=== PATIENT | female | born 1930 | race Caucasian/White ===

== ENCOUNTER → 2018-12-26 | Outpatient (CLI) | payer OTHER ==
[~2018-12-26] MED LIST: AMLODIPINE BESY10 MG PO; ASPIR 8181 MG PO; FUROSEMIDE PO; LISINOPRIL40 MG PO; SYNTHROID50 MCG PO; TRAZODONE HCL50 MG PO; TYLENOL EXTRA500 MG PO; VITAMIN D2000 UNIT PO; ZOCOR20 MG PO
== END | disposition home or self-care (01) ==
LOC: M.PC 09:00
DX: M70.61 Trochanteric bursitis, right hip (principal); M50.10 Cervical disc disorder with radiculopathy, unspecified cervical region; M47.22 Other spondylosis with radiculopathy, cervical region; Z98.890 Other specified postprocedural states; Z96.641 Presence of right artificial hip joint; Z88.8 Allergy status to other drugs, medicaments and biological substances; Z79.82 Long term (current) use of aspirin; Z79.899 Other long term (current) drug therapy

== ENCOUNTER → 2018-12-27 | Outpatient (CLI) | payer OTHER | LOC: M.CT 08:38 | DX: M47.22 Other spondylosis with radiculopathy, cervical region (principal); M48.02 Spinal stenosis, cervical region; M25.512 Pain in left shoulder; Z91.81 History of falling ==

== ENCOUNTER → 2019-01-03 | Outpatient (CLI) | payer OTHER | LOC: M.RAD 08:47 | DX: M25.512 Pain in left shoulder (principal) ==

== ENCOUNTER → 2019-01-09 | Outpatient (CLI) | payer OTHER | END | disposition home or self-care (01) | LOC: M.PC 02:17 | DX: M19.012 Primary osteoarthritis, left shoulder (principal); M75.42 Impingement syndrome of left shoulder; M47.22 Other spondylosis with radiculopathy, cervical region; M50.10 Cervical disc disorder with radiculopathy, unspecified cervical region; M70.61 Trochanteric bursitis, right hip; Z91.040 Latex allergy status; Z88.8 Allergy status to other drugs, medicaments and biological substances; Z98.890 Other specified postprocedural states; Z79.82 Long term (current) use of aspirin ==

== ENCOUNTER → 2019-01-25 | Outpatient (CLI) | payer OTHER | LOC: M.PC 05:23 | DX: M50.122 Cervical disc disorder at C5-C6 level with radiculopathy (principal); M47.22 Other spondylosis with radiculopathy, cervical region; M25.551 Pain in right hip; M79.604 Pain in right leg; Z88.8 Allergy status to other drugs, medicaments and biological substances; Z91.040 Latex allergy status ==

== ENCOUNTER → 2019-01-27 | Outpatient (CLI) | payer OTHER | LOC: M.RAD 09:38 | DX: M47.814 Spondylosis without myelopathy or radiculopathy, thoracic region (principal); M47.815 Spondylosis without myelopathy or radiculopathy, thoracolumbar region; M48.54XA Collapsed vertebra, not elsewhere classified, thoracic region, initial encounter for fracture; M43.16 Spondylolisthesis, lumbar region; M40.46 Postural lordosis, lumbar region; M48.07 Spinal stenosis, lumbosacral region; Z96.641 Presence of right artificial hip joint ==

== ENCOUNTER → 2019-02-08 | Outpatient (CLI) | payer OTHER | LOC: M.PC 02-06 09:00 | DX: M47.22 Other spondylosis with radiculopathy, cervical region (principal); M50.122 Cervical disc disorder at C5-C6 level with radiculopathy; M75.42 Impingement syndrome of left shoulder; M70.61 Trochanteric bursitis, right hip; M79.605 Pain in left leg; Y93.89 Activity, other specified ==

== ENCOUNTER 2019-02-21 01:06 | Inpatient (IN) | payer OTHER ==
[~2019-02-21] VITALS: Ht 152.4 cm; Wt 56.0 kg
--- NOTE | ~2019-02-21 | CON ---
[address] [address] CONSULTATION Name: MYRANDAALEXIS Joselyn Room: [address] IN M.R.#: [id number] Admission: 02/21/19 Attend Phys: Ilir Falk MD Discharge: Date of : 31 Report #: [id number] THIS REPORT FOR: //name// CC: Ilir Mccartneysen Pati DATE OF SERVICE: 02/22/2019 HISTORY OF PRESENT ILLNESS: This is an 88-year-old female patient who was evaluated by me for somewhat of an unusual history. She said a few months ago, she fell on an outstretched left arm. She started having some pain in the neck area. She already has a stimulator there. She had a CT scan of the cervical spine and is being followed by her pain management. I was asked to see for the possibility of trigeminal neuralgia. She does describe some tingling and numbness on the left side of the face, but does not know any aggravating or relieving factors for that. REVIEW OF SYSTEMS: She said she is allergic to ____ cannot take gabapentin. She cannot have an MRI because of ____. She has been admitted with flank pain and sepsis. She apparently had some hypertension here. She also THINKS SHE IS ALLERGIC TO TRAMADOL. Pain is chronic and she goes to pain management for that. She does give a history of dyslipidemia. She had a laminectomy in the past. She has a history of hypertension and insomnia. She is complaining of neck pain. She denies any eye, ENT, respiratory, GI, , dermatological, hematological, psychiatric, allergic symptom associated with present symptomatology. PAST MEDICAL HISTORY: Positive for neck pain. FAMILY HISTORY: Negative for any early age stroke. SOCIAL HISTORY: She does not smoke. PHYSICAL EXAMINATION: Indicates she is alert, responsive, able to follow simple commands. Her speech, concentration, fund of knowledge and memory are at her baseline. Cranial nerve examinations appear unremarkable. She has a symmetrical strength, sensation, reflexes and tone in all 4 extremities. I could not look at the fundus. There is no meningeal sign. She has no thyroid mass. She is moderately built individual. She does not have any dysmorphic features of eyes, ears and face. Cardiac examination, apparently by record, she has been diagnosed to be new onset atrial fibrillation. Respiratory examination is unremarkable. No rhonchi was noted. Blood pressure is 157/71, pulse is 110, and temperature is 98.1. LABORATORY DATA: Indicate a white count of 11.3, it [place] [address] CONSULTATION Name: ALEXIS WHITOMRE Room: [address] IN ..#: [id number] Admission: 02/21/19 Attend Phys: Ilir Falk MD Discharge: Date of : 31 Report #: [id number] normal. She thought she had a CT scan of the head, but she did not. IMPRESSION: This patient's history is not typical for trigeminal neuralgia. She has a lot of neck pain and pain syndrome and has some reflected pain in the left ear area and some in the face, but the face pain is more of numbness. RECOMMENDATIONS: Since she cannot have an MRI, I will suggest getting a CT scan done. I am not inclined to do a CT angio because GFR is only 39. If CT shows some abnormality, we may consider that. I discussed with the patient that her treatment is going to be mainly by pain management. Thank you very much for this referral and if you have any question, please feel free to contact me. By: [id number] Fernandez MD /nt
[2019-02-21 04:46] VITALS: BP 90/43
[2019-02-21 05:21] VITALS: BP 86/33
[2019-02-21 05:25] LABS: HEMATOCRIT 43.1 % (37.0-47.0); HEMOGLOBIN 14.4 gm/dL (12.0-15.0); RBC 4.46 mil/uL (4.20-5.00); WBC 3.9 thou/uL (4.0-11.0)
[2019-02-21 05:26] LABS: ABSOLUTE EOSINOPHILS 0.1 thou/uL (0.0-0.7); ABSOLUTE LYMPHOCYTES 0.6 thou/uL (0.8-5.3); ABSOLUTE NEUTROPHILS 3.2 thou/uL (1.6-8.1); BASOPHILS 0.1 %; EOSINOPHILS 2.3 %; LYMPHOCYTES 15.4 %; MCH 32.4 pg (26.0-34.0); MCHC 33.5 g/dL (28.0-37.0); MCV 96.5 fL (80.0-100.0); MONOCYTES 0.8 %; MPV 7.6 fl. (7.2-11.1); PLATELET COUNT* 242 thou/uL (150-400); POLYS 81.4 %; RDW-CV 12.9 % (10.5-14.5)
[2019-02-21 05:27] LABS: ALBUMIN 3.6 g/dL (3.4-5.0); CREATININE 1.5 mg/dL (0.6-1.3); POTASSIUM 4.3 mmol/L (3.5-5.1); TOTAL BILIRUBIN 0.7 mg/dL (<0.1-1.0); TOTAL PROTEIN 6.5 g/dL (6.4-8.2)
[2019-02-21 05:28] LABS: URINE CLARITY CLEAR; URINE COLOR YELLOW; URINE GLUCOSE-RANDOM NEGATIVE (Negative); URINE KETONES NEGATIVE (Negative); URINE PROTEIN 1+ (Negative)
[2019-02-21 05:29] LABS: BACTERIA >30 Many /HPF (None Seen); CASTS None Seen /LPF (None Seen); CRYSTALS None Seen /LPF (None Seen); MUCUS None Seen strn/LPF (None Seen); SQUAMOUS NONE SEEN /LPF (0-3); URINE BILIRUBIN NEGATIVE (Negative); URINE BLOOD 2+ (Negative); URINE LEUKOCYTES 1+ (Negative); URINE NITRITE NEGATIVE (Negative); URINE UROBILINOGEN 0.2 E.U./dl (0.2-1.0); URINE WBC 6-15 Few /HPF (0-5)
--- NOTE | 2019-02-21 07:00 | NUR ---
RECIEVED REPORT FROM ED. PT ONSET OF SYMPTOMS X3 DAYS, BACK PAIN AND REPORTED PAIN OVER STIMULATOR THAT PT HAS IN PLACE FOR CHRONIC UNRELATED BACK PAIN. PT IS LETHARGIC,EASILY AROUSED AND ANSWERS APPROPRIATELY. TELEMETRY APPLIED AND SHOWING SR W 1ST AVB. BP LOW PT REMAINS ASYMPTOMATIC. IV FLUIDS RUNNING AT 250. SEE ADMISSION ASSESSMENT AND HX.
[2019-02-21 08:00] VITALS: BP 117/46
[2019-02-21 12:16] VITALS: BP 119/43
--- NOTE | 2019-02-21 12:21 | NUR ---
Pt is A&O. Resides at home with her s/o of 19 years. Active and independent. No DME. No hx of HH. Hx of skilled at [facility], [place], operated by [facility]. Goal is home at wa, no needs anticipated.
[2019-02-21 16:44] VITALS: BP 111/46
--- NOTE | 2019-02-21 18:57 | NUR ---
ASSUMED PT CARE AT 0700, PT A&O X4, HYPOTENSIVE, 2LPM VIA NC, WORD PROCESSING OPERATOR TRACING SINUS RHYTHM WITH 1ST DEGREE AV BLOCK, FULL ASSESSMENT CHARTED. PT HAS PREVIOUS BP'S DOCUMENTED SEVERLY HYPOTENSIVE WITH BP 80'S/30'S WHICH WERE FOUND TO BE ERRONEOUS THE BP CUFF WAS TOO BIG. THIS NURSE REPLACED BP CUFF AND BP WERE SHOWING 100'S/40-50'S. PT UP WITH STANDBY TO BEDSIDE COMMODE, PT WAS BLADDER SCANNED POST VOID X1 WITH POST RESIDUAL OF 639. IV FLUIDS INCREASED AND PT CONT TO URINATE, POST RESIDUAL SHOWED 16 AFTER SECOND URINATION. PT C/O BILATERAL FLANK PAIN, TYLENOL ON BOARD WITH GOOD RESULTS. LAB DID CALL WITH POSITIVE BLOOD CULTURE FOR GRAM NEGATIVE RODS, REFRIGERATION OPERATOR NOTIFIED AT 1851, AWAITING CALL BACK. HOURLY ROUNDING COMPLETED.
[2019-02-21 20:00] VITALS: BP 125/54
[2019-02-22] VITALS: BP 147/60
[2019-02-22 04:00] VITALS: BP 146/57
--- NOTE | 2019-02-22 05:04 | NUR ---
ASSUMED CARE AT 1915H, ON ROOM AIR AND TOLERATED THE WHOLE NIGHT. NO DISTRESS AND FEVER NOTED. PT WAS MORE ALERT AND VOIDING WELL VIA COMMODE. ANTIBIOTIC STARED AND TO BE SEEN BY ID. NO RIGHT FLANK PAIN THE WHOLE NIGHT. CONTINUE CHECKIN HOURLY , CALL LIGHT WITHIN REACH AND TOWARDS GOALS.
[2019-02-22 05:08] LABS: HEMATOCRIT 37.5 % (37.0-47.0); MCH 32.5 pg (26.0-34.0); MCHC 33.2 g/dL (28.0-37.0); MCV 98.1 fL (80.0-100.0); RBC 3.82 mil/uL (4.20-5.00); RDW-CV 13.2 % (10.5-14.5); WBC 11.3 thou/uL (4.0-11.0)
[2019-02-22 05:19] LABS: HEMOGLOBIN 12.4 gm/dL (12.0-15.0)
[2019-02-22 05:41] LABS: CALCIUM 8.1 mg/dL (8.5-10.1); CREATININE 1.3 mg/dL (0.6-1.3); MAGNESIUM 1.8 mg/dL (1.8-2.4); POTASSIUM 4.2 mmol/L (3.5-5.1)
[2019-02-22 08:00] VITALS: BP 175/64
[2019-02-22 10:45] VITALS: BP 155/64
--- NOTE | 2019-02-22 11:53 | NUR ---
Spoke with , anticipate dc within the next 1-2 days
[2019-02-22 15:59] VITALS: BP 160/83
--- NOTE | 2019-02-22 16:23 | 2DMMODE ---
[place] [address] 2 D/M-MODE ECHOCARDIOGRAM Name: ALEXIS WHITMORE Room: [address] IN [facility]#: [id number] Admission: 02/21/19 Attend Phys: Ilir Falk, Discharge: Date of : 31 Date of Service: 02/22/19 1622 Report #: [id number] THIS REPORT FOR: //name// APPROVED REPORT Study performed: 02/22/2019 14:20:55 EXAM: Comprehensive 2D, Doppler, and color-flow Echocardiogram Patient Location: In-Patient Room #: 202 Status: routine BSA: 1.59 HR: 93 bpm BP: 157/71 mmHg Rhythm: Atrial Fibrillation Other Information Study Quality: Good Indications Atrial Fibrillation Sepsis 2D Dimensions IVSd: 9.96 (7-11mm) LVOT Diam: 18.14 (18-24mm) LVDd: 33.29 mm PWd: 9.41 (7-11mm) Ascending Ao: 32.57 (22-36mm) LVDs: 21.84 (25-40mm) Aortic Root: 27.84 mm Volumes Left Atrial Volume (Systole) LA ESV Index: 29.70 mL/m2 Aortic Valve AoV Peak Sachin.: 1.20 m/s AO Peak Gr.: 5.80 mmHg LVOT Max P.39 mmHg AO Mean Gr.: 3.28 mmHg LVOT Mean P.23 mmHg LVOT Max V: 1.05 m/s AO V2 VTI: 20.64 cm LVOT Mean V: 0.69 m/s MAX (VTI): 2.55 cm2 LVOT V1 VTI: 20.37 cm Mitral Valve MV Decel. Time: 120.25 ms MV PHT: 34.87 [place] [address] 2 D/M-MODE ECHOCARDIOGRAM Name: ALEXIS WHITMORE Room: [address] IN .R.#: [id number] Admission: 02/21/19 Attend Phys: Ilir Falk, Discharge: Date of : 31 Date of Service: 02/22/19 1622 Report #: [id number] MVA (PHT): 6.31 cm2 TDI Medial E' Sachin.: 0.19 m/s Lateral E' Sachin.: 0.15 m/s Pulmonary Valve PV Peak Sachin.: 0.97 m/s PV Peak Gr.: 3.75 mmHg Left Ventricle The left ventricle is normal size. There is normal LV segmental wall motion. There is normal left ventricular wall thickness. Left ventricular systolic function is normal. The left ventricular ejection fraction is within the normal range. LVEF is 60-65%. This study is not technically sufficient to allow evaluation of the LV diastolic function due to atrial fibrillation. Right Ventricle The right ventricle is normal size. The right ventricular systolic function is normal. Atria The left atrium size is normal. The right atrium size is normal. Aortic Valve The aortic valve is normal in structure. No aortic regurgitation is present. There is no aortic valvular stenosis. Mitral Valve The mitral valve is normal in structure. Trace mitral regurgitation. No evidence of mitral valve stenosis. Tricuspid Valve The tricuspid valve is normal in structure. Trace tricuspid regurgitation. Unable to assess PA pressure. Pulmonic Valve The pulmonary valve is normal in structure. There is no pulmonic valvular regurgitation. Great Vessels The aortic root is normal in size. IVC is normal in size and collapses >50% with [place] [address] 2 D/M-MODE ECHOCARDIOGRAM Name: ALEXIS WHITMORE Room: [address] IN [facility].#: [id number] Admission: 02/21/19 Attend Phys: Ilir Falk, Discharge: Date of : 31 Date of Service: 02/22/19 1622 Report #: [id number] There is no pericardial effusion. <Conclusion> The left ventricle is normal size. There is normal left ventricular wall thickness. Left ventricular systolic function is normal. The left ventricular ejection fraction is within the normal range. LVEF is 60-65%. This study is not technically sufficient to allow evaluation of the LV diastolic function due to atrial fibrillation. The right ventricle is normal size. The left atrium size is normal. The aortic valve is normal in structure. The mitral valve is normal in structure. Trace mitral regurgitation. The tricuspid valve is normal in structure. IVC is normal in size and collapses >50% with inspiration. There is no pericardial effusion. There is normal LV segmental wall motion. <ELECTRONICALLY SIGNED> By: Jarred Herndon MD, [facility] 02/22/19 1622 162 162 Jarred Herndon MD, FACC /INF
--- NOTE | 2019-02-22 18:49 | NUR ---
ASSUMED PT CARE AT 0700, PT A&O X4, PT TACHYCARDIC EPISODE AND CONVERTED INTO AFIB THIS SHIFT, NEW ORDERS FOR CARDIZEM AND METOPROLOL, PT CONVERTED BACK INTO SINUS RHYTHM WITH FIRST DEGREE AV BLOCK, PT ASYMPTOMATIC. CONT ON IV ANTIBIOTICS, FULL ASSESSMENT CHARTED. UP TO BEDSIDE COMMODE, HOURLY ROUNDING COMPLETED.
[2019-02-22 22:30] VITALS: BP 174/68
[2019-02-23] VITALS (7 sets, daily range): BP systolic 147–170; BP diastolic 62–73
[2019-02-23 04:52] LABS: HEMATOCRIT 36.9 % (37.0-47.0); HEMOGLOBIN 12.3 gm/dL (12.0-15.0); MCH 32.9 pg (26.0-34.0); MCHC 33.4 g/dL (28.0-37.0); MCV 98.6 fL (80.0-100.0); MPV 8.4 fl. (7.2-11.1); RBC 3.74 mil/uL (4.20-5.00); RDW-CV 12.7 % (10.5-14.5); WBC 8.3 thou/uL (4.0-11.0)
[2019-02-23 04:59] LABS: CALCIUM 8.5 mg/dL (8.5-10.1); CREATININE 1.3 mg/dL (0.6-1.3); MAGNESIUM 1.7 mg/dL (1.8-2.4)
--- NOTE | 2019-02-23 06:57 | NUR ---
THIS NOTE ENTERED BY ZACK CRUMP. PT HAS MAINTAINED SAFETY AND RESTED COMFORTABLY THROUGH OUT SHIFT. REPORT FOR ECHO REVIEWED LAST EVENING. PT EF 60-65%. RHYTHM SR ,1ST DEGREE AVB, WITH PACS. URINE CULTURE SHOWS E CHOLI.PT DENIES ABNORMAL PAIN OUTSIDE OF CHRONIC BACK PAIN.
--- NOTE | 2019-02-23 09:37 | CON ---
[address] [address] CONSULTATION Name: ALEXIS WHITMORE Room: [address] IN .R.#: [id number] Admission: 02/21/19 Attend Phys: Ilir Falk MD Discharge: Date of : 31 Report #: [id number] THIS REPORT FOR: //name// CC: Ilir Adams [facility] DATE OF SERVICE: 02/22/2019 INFECTIOUS DISEASE CONSULTATION ATTENDING PHYSICIAN: Dr. Falk. REASON FOR EVALUATION: Gram-negative septicemia on the basis of complicated urinary tract infection. HISTORY OF PRESENT ILLNESS: Chart reviewed, the patient examined. This is an 88-year-old woman with history of chronic back pain and frequent urinary tract infections, who was admitted the Emergency Room with complaints of nausea, worsening pain developed frequency and urgency as well. She noted the urine was clear. Typically, she has burning. This was not the case. Subsequently, developed sounds like rigors associated with fevers. On evaluation, was found to have pyuria with bacteriuria. Imaging question of her right-sided perinephric stranding. At time of the admission, blood cultures were collected 1 out of 2 with growth of gram-negative rods. Does admit to some mild dyspnea, was empirically started on antimicrobials with piperacillin and tazobactam. At this point, she is mildly encephalopathic. Denies significant gastrointestinal-related complaints. ALLERGIES: LISTED TO LORAZEPAM, SPIRONOLACTONE, TRAMADOL, GABAPENTIN, VALACYCLOVIR, CELECOXIB AND LATEX. PAST MEDICAL HISTORY: As described above, history of previous laminectomy. SOCIAL HISTORY: Nonsmoker, no ethanol, no illicit drug use. FAMILY HISTORY: Noncontributory. REVIEW OF SYSTEMS: Otherwise, 10-point review of systems unremarkable with the exception of the history of present illness. PHYSICAL EXAMINATION: GENERAL: She is alert, cooperative, appropriate. She is somewhat chronically ill-appearing, slightly undernourished. She is in qmeg-qb-grewkdya distress. VITAL SIGNS: Temperature 98.1, T-max 100.8, pulse 110, respirations 16, blood pressure 152/71[place] [address] CONSULTATION Name: ALEXIS WHITMORE Room: [address] IN [facility]#: [id number] Admission: 02/21/19 Attend Phys: Ilir Falk MD Discharge: Date of : 31 Report #: [id number] SKIN: Warm, dry, no rashes. HEENT: Otherwise unremarkable. Normocephalic. Extraocular muscles intact. NECK: Supple. LUNGS: Diminished breath sounds. Scattered crackles at the bases. HEART: Regular. Borderline tachycardic. I do not appreciate murmur. ABDOMEN: Soft. There is some flank tenderness on the right. There are no overt peritoneal signs. GENITOURINARY AND RECTAL: Deferred. LABORATORY DATA: CBC: White count 3.9, H and H 14.4 and 43.1, platelets of 242, has lymphocytopenia total of 600. Electrolytes: Sodium 133, potassium 4.3, chloride 97, bicarbonate is 28, anion gap of 8, BUN and creatinine 28 and 1.5, glucose of 119. LFTs unremarkable. Albumin of 3.6. Total protein 6.5. Estimated GFR of 33. Urinalysis 6-15 white cells, greater than 30 bacteria, 1+ leukocytes, 2+ blood, 1+ protein. Serial lactic acids 2.3, 1.5, 1.0. Chest x-ray: Mild left basilar atelectasis versus infiltrate. CT of the abdomen and pelvis, possible right perinephric inflammation. Blood cultures 1 out of 2 with gram-negative rods. ASSESSMENT: Gram-negative septicemia on the basis of complicated genitourinary tract infection. We will continue piperacillin and tazobactam should give this good coverage in the event has a mild pneumonitis as well. Monitor expectantly. Start the incentive spirometry. Discussed with the patient's spouse. <ELECTRONICALLY SIGNED> By: Carlos Valle MD 02/23/19 0937 1516 [id number] Valle MD /nt
--- NOTE | 2019-02-23 10:53 | EKG ---
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
--- NOTE | 2019-02-23 13:05 | NUR ---
Spoke with , Pt now has a positive blood culture and was in Afib yesterday. Pt should be ready to dc in a few more days. Following.
--- NOTE | 2019-02-23 13:07 | NUR ---
CM spoke with , Pt's sugars are still not controlled. Per anticipate that Pt will be medically stable to dc this weekend. Updated Falguni at [facility].
--- NOTE | 2019-02-23 13:31 | NUR ---
ASSUMED CARE OF PATIENT THIS AM AT 0730. PATIENT IS ALERT AND ORIENTED X 4. SHE DENIES PAIN THIS AM. TELE SHOWS SR WITH A 1ST DEGREE AVB. SHE IS UP IN THE ROOM. IV ANTIBIOTICS INFUSED PER ORDER. PATIENT IS UP WITH PT AND OT. WILL CONTIN UE TO MONITOR.
[2019-02-24 04:00] VITALS: BP 169/71
--- NOTE | 2019-02-24 04:38 | NUR ---
PT HAS RESTED COMFORTABLY THROUGHOUT THE NIGHT AND MET SAFETY GOALS. PT RHYTHM HAS REMAINED SR, FIRST DEGREE AVB. PT IS AFEBRILE WITH NO COMPLAINTS NOR S/S OF INFECTIOM . CALL LIGHT WITHIN REACH.
[2019-02-24 08:00] VITALS: BP 150/77
--- NOTE | 2019-02-24 10:31 | NUR ---
ASSUMED CARE OF PT AT 0730. PT RESTING IN BED WAITING FOR BREAKFAST. PT A&0X4, COMPLAINS OF INTERMITTENT PAIN TO BACK. TREATED WITH PRN TYLENOL WITH RELIEF. PT TRACING SR WITH FIRST DEGREE ON THE JEWELRY BEARING MAKER. ON RA SAT 97%. DENIES ANY SHORTNESS OF BREATH. PT UP AD SIGIFREDO TO BSC. PT GOAL FOR TODAY IS PAIN MGMT,IV ABX, MONITOR LABS, WORK WITH THERAPY AND DISCHARGE PLANNING. AM ASSESSMENT CHARTED. MEDICATIONS PER SEP. PT REPOSITIONS SELF. HOURLY ROUNDING OBSERVED. BED IN LOW POSITION. CALL LIGHT WITHIN REACH. WILL CONTINUE PLAN OF CARE.
[2019-02-24] MEDS ORDERED: CARDIZEM CD120 MG PO (10:44)
[2019-02-24] MEDS ORDERED: LOPRESSOR25 PO (10:44)
[2019-02-24] MEDS ORDERED: PROBIOTIC1 EAC1 PO (10:44)
[2019-02-24 11:26] VITALS: BP 150/77
[2019-02-24] MEDS ORDERED: BACTRIM DS TAB1 EACH PO (11:48)
[2019-02-24 12:00] VITALS: BP 123/72
--- NOTE | 2019-02-24 13:47 | NUR ---
DISCHARGE ORDERS RECEIVED. DISCHARGE INSTRUCTIONS, CARE NOTES, SCRIPTS AND FOLLOW UP APPTS GIVEN TO PT. PT COMMUNICATES UNDERSTANDING OF DISCHARGE TEACHING. IV AND ACCT EXEC REMOVED. PT DISCHARGED WITH ALL BELONGINGS AND PAPERWORK VIA WHEELCHAIR WITH [employer] TO SPOUSE OWN PERSONAL VEHICLE.
--- NOTE | 2019-02-24 14:19 | NUR ---
I have reviewed the documentation by ADRIANNE SOLIS from TODAY to 02/24/19 and I concur with it. JULES KEENAN
== END 2019-02-24 13:45 | disposition home or self-care (01) | DRG 871 ==
LOC: M.ERS 02:13 → M.TBA-ER 02:22 → M.2W 02:22
PROVIDERS: Internal Medicine; ADMIT Internal Medicine
DX: A41.50 Gram-negative sepsis, unspecified (principal); N17.0 Acute kidney failure with tubular necrosis; N30.01 Acute cystitis with hematuria; E78.5 Hyperlipidemia, unspecified; G89.29 Other chronic pain; G47.00 Insomnia, unspecified; M54.9 Dorsalgia, unspecified; M54.2 Cervicalgia; B96.20 Unspecified Escherichia coli [E. coli] as the cause of diseases classified elsewhere; I48.0 Paroxysmal atrial fibrillation; M47.892 Other spondylosis, cervical region; Z88.8 Allergy status to other drugs, medicaments and biological substances; Z88.6 Allergy status to analgesic agent; Z79.82 Long term (current) use of aspirin; Z79.899 Other long term (current) drug therapy; Z91.040 Latex allergy status

== ENCOUNTER 2019-02-27 14:18 | Emergency (ER) | payer OTHER ==
[~2019-02-27] VITALS: Ht 152.4 cm; Wt 59.0 kg
[~2019-02-27 14:18] MED LIST changes: +BACTRIM DS TAB1 EACH PO; +CARDIZEM CD120 MG PO; +LOPRESSOR25 PO; +PROBIOTIC1 EAC1 PO
[2019-02-27 15:02] LABS: ABSOLUTE BASOPHILS 0.1 thou/uL (0.0-0.2); ABSOLUTE EOSINOPHILS 0.4 thou/uL (0.0-0.7); ABSOLUTE LYMPHOCYTES 1.3 thou/uL (0.8-5.3); ABSOLUTE MONOCYTES 0.7 thou/uL (0.0-1.2); ABSOLUTE NEUTROPHILS 5.9 thou/uL (1.6-8.1); BASOPHILS 0.7 %; EOSINOPHILS 4.3 %; HEMATOCRIT 40.4 % (37.0-47.0); HEMOGLOBIN 13.5 gm/dL (12.0-15.0); LYMPHOCYTES 15.8 %; MCH 32.9 pg (26.0-34.0); MCHC 33.5 g/dL (28.0-37.0); MCV 98.2 fL (80.0-100.0); MONOCYTES 8.8 %; MPV 7.5 fl. (7.2-11.1); NUCLEATED RBCS 0 /100WBC; PLATELET COUNT* 277 thou/uL (150-400); POLYS 70.4 %; RBC 4.11 mil/uL (4.20-5.00); RDW-CV 12.7 % (10.5-14.5); WBC 8.3 thou/uL (4.0-11.0)
[2019-02-27 15:14] LABS: ANION GAP 11 mmol/L (7-16); BUN 23 mg/dL (7-18); CALCIUM 8.8 mg/dL (8.5-10.1); CHLORIDE 99 mmol/L (98-107); CO2 23 mmol/L (21-32); CREATININE 1.5 mg/dL (0.6-1.3); GLUCOSE 122 mg/dL (70-99); POTASSIUM 4.3 mmol/L (3.5-5.1); SODIUM 133 mmol/L (136-145)
[2019-02-27 15:18] LABS: URINE BILIRUBIN NEGATIVE (Negative); URINE BLOOD NEGATIVE (Negative); URINE CLARITY CLEAR; URINE COLOR YELLOW; URINE GLUCOSE-RANDOM NEGATIVE (Negative); URINE KETONES NEGATIVE (Negative); URINE LEUKOCYTES-REFLEX NEGATIVE (Negative); URINE NITRITE-REFLEX NEGATIVE (Negative); URINE PROTEIN NEGATIVE (Negative); URINE SPECIFIC GRAVITY <= 1.005 (1.005-1.030); URINE UROBILINOGEN 0.2 E.U./dl (0.2-1.0)
[2019-02-27 15:25] LABS: ALBUMIN 3.4 g/dL (3.4-5.0); ALKALINE PHOSPHATASE 75 U/L (46-116); SGOT 25 U/L (15-37); SGPT 39 U/L (30-65); TOTAL BILIRUBIN 0.4 mg/dL (<0.1-1.0); TOTAL PROTEIN 7.2 g/dL (6.4-8.2); TROPONIN-I LEVEL <0.06 ng/mL (<0.06)
--- NOTE | 2019-02-27 17:19 | EKG ---
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1930 Requested By: Bhavin Bustos Order Number: [id number] MD: Oniel Carter Measurements Intervals [place] Rate: 60 P: 56 [place]: 260 QRS: -1 QRSD: 82 T: 69 QT: 426 QTc: 426 Interpretive Statements Sinus rhythm Prolonged [place] interval Abnormal R-wave progression, late transition Compared to ECG 02/22/2019 12:53:11 Atrial fibrillation no longer present Electronically Signed On 02-27-2019 17:19:35 CDT by Oniel Carter [email or web address] <ELECTRONICALLY SIGNED> By: Oniel Carter MD, [facility] 02/27/19 1719 D: 08/1428 142 Oniel Carter MD, FACC /EPI
[2019-02-27 17:30] VITALS: BP 145/52
== END 2019-02-27 17:32 | disposition home or self-care (01) ==
LOC: M.ERS 14:18
PROVIDERS: Emergency Medicine Emergency Medical Services
DX: R68.83 Chills (without fever) (principal); I10 Essential (primary) hypertension; G47.00 Insomnia, unspecified; E78.5 Hyperlipidemia, unspecified; Z88.1 Allergy status to other antibiotic agents; Z91.040 Latex allergy status; Z88.4 Allergy status to anesthetic agent; Z88.5 Allergy status to narcotic agent; Z88.6 Allergy status to analgesic agent; Z98.890 Other specified postprocedural states

== ENCOUNTER 2019-03-15 18:31 | Emergency (ER) | payer OTHER ==
[~2019-03-15] VITALS: Ht 152.4 cm; Wt 61.2 kg
[~2019-03-15 18:31] MED LIST changes: -CLONIDINE0.1 PO; -HYDROCORTISONE3011 TP; -PEPCID20 MG PO; -PREDNISONE 20 M20 MG PO
[2019-03-15 19:29] LABS: HEMATOCRIT 40.1 % (37.0-47.0); HEMOGLOBIN 13.7 gm/dL (12.0-15.0); MCH 33.6 pg (26.0-34.0); MCHC 34.2 g/dL (28.0-37.0); MCV 98.3 fL (80.0-100.0); NUCLEATED RBCS 0 /100WBC; PLATELET COUNT* 378 thou/uL (150-400); RBC 4.08 mil/uL (4.20-5.00); RDW-CV 13.2 % (10.5-14.5); WBC 5.8 thou/uL (4.0-11.0)
[2019-03-15 19:32] LABS: CREATININE 1.1 mg/dL (0.6-1.3)
[2019-03-15 19:34] LABS: APTT 24.7 Seconds (25.0-31.3); PROTIME 10.7 Seconds (9.20-11.50)
[2019-03-15 19:36] LABS: TOTAL BILIRUBIN 0.3 mg/dL (<0.1-1.0)
[2019-03-15 19:53] LABS: ABSOLUTE EOSINOPHILS 0.7 thou/uL (0.0-0.7); ABSOLUTE LYMPHOCYTES 1.3 thou/uL (0.8-5.3); ABSOLUTE MONOCYTES 0.4 thou/uL (0.0-1.2); ABSOLUTE NEUTROPHILS 3.4 thou/uL (1.6-8.1); PLATELET ESTIMATE ADEQUATE
[2019-03-15] MEDS ORDERED: PEPCID20 MG PO (21:13)
[2019-03-15] MEDS ORDERED: HYDROCORTISONE3011 TP (21:13)
[2019-03-15] MEDS ORDERED: CLONIDINE0.1 PO (21:13)
[2019-03-15] MEDS ORDERED: PREDNISONE 20 M20 MG PO (21:13)
[2019-03-15 21:49] VITALS: BP 144/58
== END 2019-03-15 22:39 | disposition home or self-care (01) ==
LOC: M.ERS 18:31
PROVIDERS: Nurse Practitioner Family
DX: R21 Rash and other nonspecific skin eruption (principal); T46.1X5A Adverse effect of calcium-channel blockers, initial encounter; I10 Essential (primary) hypertension; E78.5 Hyperlipidemia, unspecified; G47.00 Insomnia, unspecified; G89.29 Other chronic pain; Z96.632 Presence of left artificial wrist joint; Z98.890 Other specified postprocedural states; Z88.5 Allergy status to narcotic agent; Z91.040 Latex allergy status; Z88.8 Allergy status to other drugs, medicaments and biological substances; Z88.2 Allergy status to sulfonamides; Z88.3 Allergy status to other anti-infective agents; Y92.89 Other specified places as the place of occurrence of the external cause

== ENCOUNTER → 2019-03-15 | Outpatient (CLI) | payer OTHER ==
[~2019-03-15] MED LIST changes: +CLONIDINE0.1 PO; +HYDROCORTISONE3011 TP; +NORVASC10 MG PO; +PEPCID20 MG PO; +PREDNISONE 20 M20 MG PO
== END ==
LOC: M.PC 05:16
DX: M47.22 Other spondylosis with radiculopathy, cervical region (principal); M50.10 Cervical disc disorder with radiculopathy, unspecified cervical region; R20.0 Anesthesia of skin; R20.2 Paresthesia of skin; M25.512 Pain in left shoulder; M13.812 Other specified arthritis, left shoulder; M75.42 Impingement syndrome of left shoulder; M54.16 Radiculopathy, lumbar region; M25.551 Pain in right hip; M79.604 Pain in right leg; M70.61 Trochanteric bursitis, right hip; Y93.89 Activity, other specified

== ENCOUNTER 2019-04-12 09:16 | Emergency (ER) | payer OTHER ==
[~2019-04-12] VITALS: Ht 152.4 cm; Wt 59.9 kg
[~2019-04-12 09:16] MED LIST changes: -KEFLEX500 M1 PO
[2019-04-12] MEDS ORDERED: KEFLEX500 M1 PO (10:52)
[2019-04-12 11:00] VITALS: BP 159/62
== END 2019-04-12 11:00 | disposition home or self-care (01) ==
LOC: M.ERS 09:16
DX: S60.351A Superficial foreign body of right thumb, initial encounter (principal); I10 Essential (primary) hypertension; E78.5 Hyperlipidemia, unspecified; G47.00 Insomnia, unspecified; G89.29 Other chronic pain; Z96.632 Presence of left artificial wrist joint; Z91.040 Latex allergy status; Z88.5 Allergy status to narcotic agent; Z88.1 Allergy status to other antibiotic agents; Z88.6 Allergy status to analgesic agent; Z88.8 Allergy status to other drugs, medicaments and biological substances; X58.XXXA Exposure to other specified factors, initial encounter; Y92.89 Other specified places as the place of occurrence of the external cause; Y93.89 Activity, other specified

== ENCOUNTER → 2019-04-12 | Outpatient (CLI) | payer OTHER ==
[~2019-04-12] MED LIST changes: +CLONIDINE0.1 PO; +HYDROCORTISONE3011 TP; +KEFLEX500 M1 PO; +PEPCID20 MG PO; +PREDNISONE 20 M20 MG PO
== END ==
LOC: M.PC 04:54
DX: M47.22 Other spondylosis with radiculopathy, cervical region (principal); M50.122 Cervical disc disorder at C5-C6 level with radiculopathy; M19.90 Unspecified osteoarthritis, unspecified site; M70.60 Trochanteric bursitis, unspecified hip; M75.42 Impingement syndrome of left shoulder

== ENCOUNTER → 2019-05-01 | Outpatient (CLI) | payer OTHER ==
[~2019-05-01] MED LIST changes: +KEFLEX500 M1 PO
== END ==
LOC: M.PC 04:55
DX: M47.22 Other spondylosis with radiculopathy, cervical region (principal); M50.10 Cervical disc disorder with radiculopathy, unspecified cervical region; M19.012 Primary osteoarthritis, left shoulder; M75.42 Impingement syndrome of left shoulder; M70.61 Trochanteric bursitis, right hip

== ENCOUNTER → 2020-01-04 | Outpatient (CLI) | payer OTHER | LOC: M.RAD 11:27 | PROVIDERS: ATTEND Registered Nurse | DX: J47.9 Bronchiectasis, uncomplicated (principal); R06.09 Other forms of dyspnea; J39.8 Other specified diseases of upper respiratory tract; J84.89 Other specified interstitial pulmonary diseases ==

== ENCOUNTER → 2020-01-08 | Outpatient (CLI) | payer OTHER | LOC: M.PC 09:50 | PROVIDERS: ATTEND Physical Medicine & Rehabilitation | DX: M54.5 Low back pain (principal); M79.604 Pain in right leg; M75.42 Impingement syndrome of left shoulder; M19.012 Primary osteoarthritis, left shoulder; M47.22 Other spondylosis with radiculopathy, cervical region; M50.122 Cervical disc disorder at C5-C6 level with radiculopathy; M70.61 Trochanteric bursitis, right hip; Z96.82 Presence of neurostimulator; Z88.6 Allergy status to analgesic agent ==

== ENCOUNTER → 2020-01-25 | Outpatient (CLI) | payer OTHER | LOC: M.CT 13:00 | PROVIDERS: ATTEND Internal Medicine | DX: J84.10 Pulmonary fibrosis, unspecified (principal); J84.9 Interstitial pulmonary disease, unspecified; R06.02 Shortness of breath ==

== ENCOUNTER 2021-01-23 10:55 | Emergency (ER) | payer OTHER ==
[~2021-01-23] VITALS: Ht 152.4 cm; Wt 59.9 kg
[~2021-01-23 10:55] MED LIST changes: +FUROSEMIDE 20 M20 MG PO; +ZESTRIL40 MG PO
[2021-01-23 12:22] VITALS: BP 151/70
== END 2021-01-23 12:23 | disposition home or self-care (01) ==
LOC: M.ERS 10:55
DX: J40 Bronchitis, not specified as acute or chronic (principal); Z20.822 Contact with and (suspected) exposure to COVID-19; E78.5 Hyperlipidemia, unspecified; I10 Essential (primary) hypertension; G89.29 Other chronic pain; Z88.5 Allergy status to narcotic agent; Z88.1 Allergy status to other antibiotic agents; Z88.6 Allergy status to analgesic agent; Z91.040 Latex allergy status; Z88.8 Allergy status to other drugs, medicaments and biological substances

== ENCOUNTER 2021-01-25 05:36 | Observation (INO) | payer OTHER ==
[~2021-01-25] VITALS: Ht 152.4 cm; Wt 61.7 kg
[2021-01-25 05:52] VITALS: BP 178/64
[2021-01-25] MEDS ORDERED: AZITHROMYCIN500 MG PO (06:05)
[2021-01-25 06:58] LABS: CALCIUM 8.1 mg/dL (8.5-10.1)
[2021-01-25 07:02] LABS: PO2 67.2 mmHg (75.0-100.0); pH 7.399 (7.340-7.450)
[2021-01-25 07:02] LABS: ALBUMIN 3.5 g/dL (3.4-5.0); MAGNESIUM 2.1 mg/dL (1.8-2.4); TOTAL BILIRUBIN 0.4 mg/dL (<0.1-1.0); TOTAL PROTEIN 6.9 g/dL (6.4-8.2)
[2021-01-25 07:03] LABS: ABSOLUTE LYMPHOCYTES 1.5 thou/uL (0.8-5.3); ABSOLUTE MONOCYTES 1.1 thou/uL (0.0-1.2); ABSOLUTE NEUTROPHILS 8.2 thou/uL (1.6-8.1); BASOPHILS 0.3 %; EOSINOPHILS 0.4 %; HEMATOCRIT 38.5 % (37.0-47.0); HEMOGLOBIN 13.2 gm/dL (12.0-15.0); LYMPHOCYTES 13.6 %; MCH 32.5 pg (26.0-34.0); MCHC 34.4 g/dL (28.0-37.0); MCV 94.5 fL (80.0-100.0); MONOCYTES 10.1 %; MPV 8.2 fl. (7.2-11.1); NUCLEATED RBCS 0 /100WBC; PLATELET COUNT* 236 thou/uL (150-400); POLYS 75.6 %; RBC 4.07 mil/uL (4.20-5.00); RDW-CV 13.4 % (10.5-14.5); WBC 10.8 thou/uL (4.0-11.0)
[2021-01-25 07:58] LABS: URINE BILIRUBIN NEGATIVE (Negative); URINE BLOOD NEGATIVE (Negative); URINE CLARITY CLEAR; URINE COLOR YELLOW; URINE GLUCOSE-RANDOM NEGATIVE (Negative); URINE KETONES NEGATIVE (Negative); URINE LEUKOCYTES-REFLEX NEGATIVE (Negative); URINE NITRITE-REFLEX NEGATIVE (Negative); URINE PROTEIN NEGATIVE (Negative); URINE UROBILINOGEN 0.2 E.U./dl (0.2-1.0)
[2021-01-25 08:21] LABS: INFLUENZA A ANTIGEN Negative (Negative); INFLUENZA B ANTIGEN Negative (Negative)
--- NOTE | 2021-01-25 08:57 | NUR ---
PT GIVEN REGULAR DIET BREAKFAST TRAY
[2021-01-25 14:20] VITALS: BP 155/62
[2021-01-25] MEDS ORDERED: ATENOLOL 25 MG25 M1 PO (14:30)
[2021-01-25 17:46] VITALS: BP 127/52
[2021-01-25 18:00] VITALS: BP 148/53
[2021-01-25 20:00] VITALS: BP 147/65
--- NOTE | 2021-01-26 04:59 | NUR ---
ASSUMED CARES AT 1920. ALERT AND ORIENTED. PLEASANT. PT SAYS THAT COUGH IS IMPROVING. DENIED ANY PAIN. UP WITH ASSIST TO BATHROOM. SLEPT OFF AND ON.
[2021-01-26 06:28] LABS: ABSOLUTE LYMPHOCYTES 0.9 thou/uL (0.8-5.3); ABSOLUTE MONOCYTES 0.4 thou/uL (0.0-1.2); ABSOLUTE NEUTROPHILS 6.4 thou/uL (1.6-8.1); BASOPHILS 0.1 %; HEMATOCRIT 35.7 % (37.0-47.0); HEMOGLOBIN 12.4 gm/dL (12.0-15.0); LYMPHOCYTES 12.3 %; MCH 32.7 pg (26.0-34.0); MCHC 34.8 g/dL (28.0-37.0); MCV 93.9 fL (80.0-100.0); MONOCYTES 4.7 %; MPV 8.1 fl. (7.2-11.1); NUCLEATED RBCS 0 /100WBC; PLATELET COUNT* 232 thou/uL (150-400); POLYS 82.9 %; RDW-CV 13.5 % (10.5-14.5); WBC 7.7 thou/uL (4.0-11.0)
[2021-01-26 06:36] LABS: CREATININE 0.7 mg/dL (0.6-1.3); POTASSIUM 3.7 mmol/L (3.5-5.1)
[2021-01-26 07:50] VITALS: BP 181/67
[2021-01-26] MEDS ORDERED: ATENOLOL 25 MG25 M1 PO (08:19)
[2021-01-26] MEDS ORDERED: METHOCARBAMOL750 MG PO (08:23)
[2021-01-26 16:00] VITALS: BP 170/60
--- NOTE | 2021-01-26 17:21 | NUR ---
PATIENT RESTING IN BED. PATIENT IS UP STANDBY ASSIST TO BATHROOM. PATIENT DENIES ANY TROUBLE BREATHING. PATIENT HAD COMPLAINTS OF REACTION TO MUCINEX THIS AM, DR LI AWARE AND DISCONTINUED. PATIENT DENIES ANY PAIN. SCHEDULED BREATHING TREATMENTS. PATIENT HAS GOOD APPETITE. PATIENT DENIES ANY NEEDS AT THIS TIME. CALL LIGHT WITHIN REACH.
[2021-01-26 21:22] VITALS: BP 167/66
--- NOTE | 2021-01-27 06:50 | NUR ---
PT SLEPT OFF AND ON OVERNIGHT. RECEIVING RT TX AT HS, CALL MADE TO RT THIS MORNING FOR NEXT TREATMENT SOON POSSIBLE PER PT REQUEST. ROOM AIR SAT 93%. REAL ESTATE LEASING MANAGER COUGH HEARD. RFA SL IV. UP WITH SBA TO BR TO VOID. AOX4, ABLE TO USE CALL LITE AND MAKE NEEDS KNOWN. TO HAVE CXR TODAY. DNR.
[2021-01-27 07:50] VITALS: BP 177/68
[2021-01-27] MEDS ORDERED: CLARITIN10 MG PO (08:14)
[2021-01-27] MEDS ORDERED: NEXIUM40 MG PO (08:14)
[2021-01-27] MEDS ORDERED: CEFDINIR300 MG PO (08:15)
[2021-01-27] MEDS ORDERED: MEDROLDOSEPACK PO (08:15)
[2021-01-27] MEDS ORDERED: TESSALON PERLE100 MG PO (08:16)
[2021-01-27] MEDS ORDERED: PROAIR HFA8.5 GM INH (08:21)
--- NOTE | 2021-01-27 12:28 | NUR ---
cm s/w pt who inidcated she lives at home with her s/o, jacquelin. pt has a walker that she stated she doesnt normally use. pt has hx @ [facility]. pt has no hx of hh. pt has been to outpatient therapy she stated. cm faxed referral to [facility]. [facility].
[2021-01-27 13:44] VITALS: BP 177/68
--- NOTE | 2021-01-27 13:50 | NUR ---
andre with [facility] indicated they are accepting of pt.
[2021-01-27 13:51] VITALS: BP 177/68
[2021-01-27 14:26] VITALS: BP 177/68
--- NOTE | 2021-01-27 14:52 | EKG ---
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1930 Requested By: Jose Gilmore Order Number: [id number] Hallie MD: Oniel Carter Measurements Intervals [place] Rate: 66 P: 0 [place]: 197 QRS: 76 QRSD: 97 T: 71 QT: 412 QTc: 432 Interpretive Statements Sinus rhythm Left atrial enlargement Borderline T abnormalities, lateral leads Compared to ECG 02/27/2019 14:29:58 First degree AV block no longer present Electronically Signed On 01-27-2021 14:52:27 CDT by Oniel Carter [email or web address] <ELECTRONICALLY SIGNED> By: Oniel Carter MD, [facility] 01/27/21 1452 0549 0549 Oniel Carter MD, [facility] /EPI
== END 2021-01-27 14:00 | disposition home health service (06) ==
LOC: M.ERS 05:36 → M.TBA-ER 07:55 → M.3W 07:55
PROVIDERS: Family Medicine; Personal Emergency Response Attendant; ADMIT Internal Medicine; ATTEND Internal Medicine
DX: J20.9 Acute bronchitis, unspecified (principal); M19.90 Unspecified osteoarthritis, unspecified site; N17.9 Acute kidney failure, unspecified; Z20.822 Contact with and (suspected) exposure to COVID-19; J06.9 Acute upper respiratory infection, unspecified; R53.1 Weakness; I10 Essential (primary) hypertension; G89.29 Other chronic pain; E78.5 Hyperlipidemia, unspecified; Z88.5 Allergy status to narcotic agent; Z88.8 Allergy status to other drugs, medicaments and biological substances; Z91.040 Latex allergy status; Z88.1 Allergy status to other antibiotic agents; Z79.899 Other long term (current) drug therapy; Z79.82 Long term (current) use of aspirin